=== PATIENT | female | born 1930 | race Caucasian/White ===

== ENCOUNTER 2020-08-05 11:48 | Emergency (ER) | payer MEDICARE, OTHER ==
[~2020-08-05] VITALS: Ht 165.1 cm; Wt 68.2 kg
[2020-08-05 13:24] VITALS: BP 171/94
--- NOTE | 2020-08-05 13:27 | NUR ---
called son for a ride
== END 2020-08-05 13:26 | disposition home or self-care (01) ==
LOC: ER 11:49
DX: S80.11XA Contusion of right lower leg, initial encounter (principal); I10 Essential (primary) hypertension; Z86.73 Personal history of transient ischemic attack (TIA), and cerebral infarction without residual deficits; Z86.69 Personal history of other diseases of the nervous system and sense organs; Z72.89 Other problems related to lifestyle; W22.8XXA Striking against or struck by other objects, initial encounter; Y93.01 Activity, walking, marching and hiking; Y92.008 Other place in unspecified non-institutional (private) residence as the place of occurrence of the external cause; Y99.8 Other external cause status
CPT/HCPCS: 99281

== ENCOUNTER 2021-03-28 13:26 | Outpatient (CLI) | payer MEDICARE, OTHER | END 2021-03-28 23:59 | disposition home or self-care (01) | LOC: VAS 13:26 | PROVIDERS: ATTEND Nurse Practitioner Family | DX: R60.0 Localized edema (principal) | CPT/HCPCS: 93971 ==